=== PATIENT | female | born 1990 | race Hispanic/Latino ===

== ENCOUNTER 2020-09-29 22:55 | Emergency (ER) | payer OTHER ==
[~2020-09-29] VITALS: Ht 154.9 cm; Wt 61.2 kg
[2020-09-29] MEDS ORDERED: ACETAMINOPHEN 325 MG TAB ONE (23:31)
[2020-09-29] MEDS ORDERED: ONDANSETRON HCL 4 MG ORAL DISINTEGRATING TAB ONE (23:31)
[2020-09-29] MEDS ORDERED: ACETAMINOPHEN 325 MG TAB PO ONE (23:45)
[2020-09-29] MEDS ORDERED: DEXTROSE 5%/0.9% SOD CHL 1,000 ML IV ONE (23:45)
[2020-09-29] MEDS ORDERED: ONDANSETRON HCL 4 MG ORAL DISINTEGRATING TAB PO ONE (23:45)
[2020-09-30 00:14] LABS: CLARITY,URINE CLOUDY (CLEAR); COLOR,URINE YELLOW (YELLOW); LEUKOCYTE ESTERASE ,URINE SMALL (NEGATIVE); NITRITE,URINE NEGATIVE (NEGATIVE); PROTEIN,URINE DIPSTICK 1+ (NEGATIVE)
[2020-09-30 00:15] LABS: KETONES,URINE 3+ (NEGATIVE); URINE UROBILINOGEN 0.2 mg/dL (0.2 - 1)
[2020-09-30 00:25] LABS: BACTERIA,URINE MODERATE /HPF; EPITHELIAL CELLS,URINE MANY /LPF; RBC,URINE 0-5 /HPF (0-5)
[2020-09-30 00:28] LABS: BASOPHILS % 0.1 % (0.0-1.0); HEMATOCRIT 33.9 % (34.2-44.1); LYMPHOCYTES # (AUTO) 0.8 (1.0-3.2); LYMPHOCYTES % 11.5 % (18.0-39.1); MEAN CORPUSCULAR HEMOGLOBIN 31.5 pg (28-32); MEAN CORPUSCULAR HGB CONC 32.4 g/dL (31-35); MEAN CORPUSCULAR VOLUME 97.1 fL (81-99); MONOCYTES # (AUTO) 0.4 (0.2-0.8); MONOCYTES % 4.9 % (4.4-11.3); NEUTROPHILS % 82.8 % (38.7-80.0); PLATELET COUNT 206 x10e3/uL (140-360); RED BLOOD COUNT 3.49 x10e6/uL (3.6-5.1); RED CELL DISTRIBUTION WIDTH 13.6 % (11.7-14.4)
[2020-09-30 00:44] LABS: ALANINE AMINOTRANSFERASE 11 IU/L (0-55); ALBUMIN 2.6 g/dL (3.5-5.0); ALBUMIN/GLOBULIN RATIO 0.7 (0.8-2.0); ALKALINE PHOSPHATASE 82 IU/L (40-150); ANION GAP 13.1 mmol/L (8-16); BLOOD UREA NITROGEN < 5 mg/dL (7-26); CARBON DIOXIDE 13 mmol/L (22-29); CHLORIDE 109 mmol/L (98-107); CREATININE, SERUM 0.45 mg/dL (0.57-1.11); EST GLOMERULAR FILTRATION RATE > 60 ML/MIN (60-); GLUCOSE 78 mg/dL (74-118); POTASSIUM 3.1 mmol/L (3.5-5.1); SODIUM 132 mmol/L (136-145)
[2020-09-30 00:46] LABS: BUN/CREATININE RATIO 11 (6-25)
[2020-09-30] MEDS ORDERED: ZUPLENZ4 MG PO (01:16)
== END 2020-09-30 01:44 | disposition home or self-care (01) ==
LOC: ER 23:23
DX: O26.92 Pregnancy related conditions, unspecified, second trimester (principal); O23.42 Unspecified infection of urinary tract in pregnancy, second trimester; U07.1 COVID-19
CPT/HCPCS: 36415; 80053; 81001; 85025; 99283; J7042; Q0162